=== PATIENT | male | born 1990 | race Caucasian/White ===

== ENCOUNTER 2021-09-15 20:25 | Emergency (ER) | payer OTHER ==
[2021-09-15 20:59] VITALS: TEMP 99.2; BMI 32.8
[2021-09-15 21:36] VITALS: BP 159/98; PULSE 98
[2021-09-15 21:36] LABS: ALBUMIN 4.3 g/dl (3.4-5.0); BILIRUBIN,TOTAL 0.9 mg/dl (0.2-1); CALCIUM 8.7 mg/dl (8.5-10); TOT PROT 7.3 g/dl (6.4-8.2)
[2021-09-15 21:37] LABS: CREATININE 14.8 mg/dl (0.55-1.3)
[2021-09-15 21:40] LABS: HEMATOCRIT 42.6 % (35.4-49); HEMOGLOBIN 14.1 G/dL (11.7-16.9); MCH 25.4 pg (25.7-33.7); MCHC 33.1 g/dl (32.0-35.9); MEAN CELL VOLUME 76.7 fl (80-96); MEAN PLT VOLUME 9.2 fl (7.5-11.1); PLATELET COUNT 207.5 10^3/uL (134-434); RBC 5.55 10^6/uL (4.00-5.60); RDW 19.1 % (11.9-15.9); WHITE BLOOD COUNT 7.5 10^3/uL (4.0-10.8)
[2021-09-15 22:13] LABS: PLATELET ESTIMATE ADEQUATE
[2021-09-15 22:16] LABS: ANISOCYTOSIS 1+
[2021-09-15] MEDS ORDERED: KETOROLAC TROMETHAMINE 30 MG/1 ML VIAL IVPUSH ONE (22:31)
[2021-09-15] MEDS ORDERED: KETOROLAC TROMETHAMINE 30 MG/1 ML VIAL ONE (22:39)
== END 2021-09-15 23:04 | disposition home or self-care (01) ==
LOC: FER 20:25
PROC: 3E0333Z Introduction of Anti-inflammatory into Peripheral Vein, Percutaneous Approach (ICD-10-PCS; principal; 2021-09-15)
DX: R10.9 Unspecified abdominal pain (principal)
CPT/HCPCS: 36415; 80053; 83605; 83690; 85025; 99284-25